=== PATIENT | female | born 1980 | race Caucasian/White ===

== ENCOUNTER 2017-02-04 19:33 | Emergency (ER) | payer SELFPAY ==
[~2017-02-04] VITALS: Ht 167.6 cm; Wt 65.8 kg
[2017-02-04] MEDS ORDERED: IV NORMAL SALINE 1000 ML BAG IV ONE (20:00)
--- NOTE | 2017-02-04 20:00 | NUR ---
Pt biba for ALOC. Pt found on ground by joggers. Pt unresponsive at this time. No obvious signs of trauma. C-collar placed upon arrival to ER. Per EMS unclear pt had possible sz. Pt ST on monitor. Resp even and unlabored. MD at bedside. Awaiting further orders.
--- NOTE | 2017-02-04 20:09 | NUR ---
CERVICAL COLLAR PLACED, EKG DONE.
[2017-02-04 20:24] LABS: BASOPHILS # (AUTO) 0.1 K/uL (0.0-8.0); BASOPHILS % (AUTO) 0.9 % (0.0-2.0); EOSINOPHILS # (AUTO) 0.1 K/uL (0.0-0.7); EOSINOPHILS % (AUTO) 2.5 % (0.0-7.0); HEMATOCRIT 39.6 % (37-47); HEMOGLOBIN 13.3 G/DL (12.0-16.0); LYMPHOCYTES # (AUTO) 2.1 K/UL (0.8-4.8); LYMPHOCYTES % (AUTO) 35.5 % (20.5-51.5); MEAN CORPUSCULAR HEMOGLOBIN 32.1 UUG (27.0-31.0); MEAN CORPUSCULAR HGB CONC 34 g/dL (32.0-37.0); MONOCYTES # (AUTO) 0.3 K/UL (0.1-1.30); MONOCYTES % (AUTO) 4.4 % (0.0-11.0); NEUTROPHILS # (AUTO) 3.3 K/UL (1.8-8.9); NEUTROPHILS % (AUTO) 56.7 % (38.5-71.5); PLATELET COUNT (AUTO) 277 K/UL (150-450); RED BLOOD CELL COUNT(AUTO) 4.13 MIL/UL (4.2-5.4); WHITE BLOOD COUNT (AUTO) 5.9 K/UL (4.0-11.2)
[2017-02-04 20:38] LABS: ALANINE AMINOTRANSFERASE 125 U/L (14-59); ALKALINE PHOSPHATASE 126 U/L (50-136); ASPARTATE AMINOTRANSFERASE 315 U/L (15-37); BILIRUBIN,DIRECT 0.1 mg/dL (0.0-0.2); BILIRUBIN,TOTAL 0.3 mg/dL (0.2-1.0); CARBON DIOXIDE 23 mmol/L (21-32); CHLORIDE 106 mmol/L (98-107); CREATININE 0.7 mg/dL (0.6-1.3); GLUCOSE 97 mg/dL (74-106); POTASSIUM 3.4 mmol/L (3.5-5.1); TOTAL PROTEIN, SERUM 7.9 g/dL (6.4-8.2); UREA NITROGEN, BLOOD 13 mg/dL (7-18)
[2017-02-04 20:39] LABS: ACETAMINOPHEN < 2.0 ug/mL (10-30)
[2017-02-04 20:41] LABS: ETHANOL 199 MG/DL (0-0)
--- NOTE | 2017-02-04 21:00 | NUR ---
Pt to CT via [facility]
[2017-02-04 21:07] LABS: THYROID STIMULATING HORMONE 2.824 mIU/mL (0.358-3.740)
--- NOTE | 2017-02-04 21:18 | NUR ---
Pt returned fro CT via gurney. Pt resting in position of comfort for self with eyes closed. No obvious signs of distress at this time.
--- NOTE | 2017-02-04 21:50 | NUR ---
C-collar removed per Dr. Fernandez. Pt ambulated to br with steady gait. Pt now resting in position of comfort for self. No complaints at this time
[2017-02-04 22:21] LABS: *AMPHETAMINE, URINE POSITIVE (NEGATIVE); *BARBITURATE, URINE NEGATIVE (NEGATIVE); *CANNABINOID, URINE NEGATIVE (NEGATIVE); *COCCAINE, URINE NEGATIVE (NEGATIVE); *OPIATE, URINE NEGATIVE (NEGATIVE); *PHENCYCLIDINE SCREEN,URINE NEGATIVE (NEGATIVE)
--- NOTE | 2017-02-04 23:00 | NUR ---
Pt resting in position of comfort for self with eyes closed, resp even and unlabored. No obvious signs of distress at this time.
[2017-02-05] MEDS ORDERED: LORAZEPAM 0.5 MG TABLET PO ONE (02:30)
--- NOTE | 2017-02-05 02:38 | NUR ---
Pt requested medication for anxiety. MD notified and pt medicated, will monitor for effects of medication. MD notified of pts blood pressure. Pt resting in position of comfort for self.
[2017-02-05] MEDS ORDERED: LORAZEPAM 1 MG TABLET ONE (02:48)
--- NOTE | 2017-02-05 04:00 | NUR ---
Pt resting with her eyes closed in a position of comfort for self, appears asleep. Resp even and unlabored. No obvious signs of distress at this time.
--- NOTE | 2017-02-05 04:13 | NUR ---
Dr. Fernandez notified of pt's blood pressure, awaiting further orders.
[2017-02-05] MEDS ORDERED: IV D5/ 0.9% NACL 1,000 ML IV ONE (06:06)
--- NOTE | 2017-02-05 06:07 | NUR ---
Pt was to be discharged. notified of pt's cont elevated bp and tachycardia. Discharged postponed per Dr. Fernandez. Awaiting further orders.
[2017-02-05] MEDS ORDERED: LORAZEPAM 2 MG/1 ML VIAL IV ONE (06:15)
[2017-02-05] MEDS ORDERED: LABETALOL HCL 100 MG/20 ML VIAL IV ONE (06:15)
[2017-02-05] MEDS ORDERED: THIAMINE HCL 200 MG/2 ML VIAL IV ONE (06:15)
[2017-02-05] MEDS ORDERED: LABETALOL HCL 100 MG/20 ML VIAL ONE (06:24)
[2017-02-05] MEDS ORDERED: THIAMINE HCL 200 MG/2 ML VIAL ONE (06:24)
[2017-02-05] MEDS ORDERED: LORAZEPAM 2 MG/1 ML VIAL ONE (06:25)
[2017-02-05 06:26] VITALS: BP 148/111
--- NOTE | 2017-02-05 06:26 | NUR ---
Pt medicated for elevated bp, will monitor for effects of medication. Fluid bolus infusing freely to gravity. Pt repositioned for comfort. No complaints at this time
--- NOTE | 2017-02-05 07:05 | NUR ---
Report given to EDGAR Jang. I relinquish care of pt at this time
--- NOTE | 2017-02-05 07:05 | NUR ---
Hands off report received from assistant shift supervisor, pt sleeping with no s/s of acute distress noted at this time.
--- NOTE | 2017-02-05 08:11 | NUR ---
Pt is awake, alert and oriented x 4, states she "feels better". Pt ambulated to restroom with steady gait.
--- NOTE | 2017-02-05 08:20 | NUR ---
IV removed. Catheter intact and site benign. Pressure and 4x4 gauze applied to site. No bleeding noted.
--- NOTE | 2017-02-05 08:24 | NUR ---
Patient discharged to home in stable conditon. Written and verbal after care instructions given. Patient verbalizes understanding of instructions. Stressed follow up or return to ER for worsening s/s. Pt ambulated out of ER with steady gait.
== END 2017-02-05 08:25 | disposition home or self-care (01) ==
LOC: EDBD 19:45 → ER 19:45
DX: F10.129 Alcohol abuse with intoxication, unspecified (principal); F15.10 Other stimulant abuse, uncomplicated; F10.10 Alcohol abuse, uncomplicated
CPT/HCPCS: 36415; 70030-TC; 70450; 71010; 72125; 80307; 84443; 84703; 85025; 85730; 93005; A4663; G0480; G0480-TC; J2060; J3411; J3490; J7030; J7042